=== PATIENT | male | born 1980 | race Caucasian/White ===

== ENCOUNTER 2023-01-05 21:18 | Emergency (ER) | payer MEDICAID ==
[~2023-01-05] VITALS: Ht 185.4 cm; Wt 84.1 kg
[2023-01-05 21:28] VITALS: BP 123/93; PULSE 89; RESP 18; TEMP 98; O2SAT 98
[2023-01-05] MEDS ORDERED: bacitracin 15gm ointment TP ONE (22:45)
[2023-01-05] MEDS ORDERED: LIDOcaine 1% W/epiNEPHrine 1:100,000 20ml vial IJ ONE (22:50)
--- NOTE | 2023-01-05 23:07 | NUR ---
wound irr with 150ml nacl pa informed
== END 2023-01-05 23:26 | disposition home or self-care (01) ==
LOC: ER 21:19
DX: S01.81XA Laceration without foreign body of other part of head, initial encounter (principal); W19.XXXA Unspecified fall, initial encounter; Y93.89 Activity, other specified; Y92.89 Other specified places as the place of occurrence of the external cause; Y99.8 Other external cause status
CPT/HCPCS: 12013; 99282

== ENCOUNTER → 2024-08-18 | Emergency (ER) | payer MEDICAID ==
[~2024-08-18] VITALS: Ht 188 cm; Wt 62.2 kg
[2024-08-18 12:10] VITALS: BP 127/88; PULSE 106; RESP 15; O2SAT 99
[2024-08-18 15:04] VITALS: TEMP 98.8
== END | disposition home or self-care (01) ==
LOC: ER 12:09
DX: S93.491A Sprain of other ligament of right ankle, initial encounter (principal); X50.1XXA Overexertion from prolonged static or awkward postures, initial encounter; Y93.01 Activity, walking, marching and hiking; Y92.89 Other specified places as the place of occurrence of the external cause; Y99.8 Other external cause status
CPT/HCPCS: 29515; 99283; L1930

== ENCOUNTER 2025-05-12 12:46 | Outpatient (CLI) | payer MEDICAID ==
[~2025-05-12 12:46] MED LIST: iohexol 300mg/ml 100ml inj. ONE
--- NOTE | 2025-05-12 14:17 | RADIOLOGY REPORT ---
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 Axial, coronal and sagittal multiplanar reformats were performed. Radiation Dose Information: CT Dose: CTDI volume is 13 mGy. Dose-length product is 486 mGy*cm The dose indicators for CT are the volume Computed Tomography (CT) Dose Index (CTDIvol) and the Dose Length Product (DLP), and are measured in units of mGy and mGy-cm, respectively. These indicators are not patient dose, but values generated from the CT scanner acquisition factors. The report includes radiation exposure data for exposures received during this examination. FINDINGS: Lower neck: Normal thyroid. Lungs: No focal consolidation, pleural effusion or pneumothorax. Heart/Vascular Structures: Normal heart size. No pericardial effusion. Lymph Nodes: No adenopathy Pleura: No pleural effusion or significant pneumothorax. Musculoskeletal: No acute osseous abnormality. Soft tissues: Normal. Upper abdomen: Limited portions of the upper abdomen are unremarkable. IMPRESSION: 1. No acute intrathoracic abnormality. 2. No evidence of malignancy in the chest Radiation optimization: All CT scans at this facility use at least one of these dose optimization techniques: automated exposure control mA and/or kV adjustment per patient size (includes targeted exams where dose is matched to clinical indication) or iterative reconstruction.
== END 2025-05-12 23:59 | disposition home or self-care (01) ==
LOC: RAD 12:46
PROVIDERS: ATTEND Student in an Organized Health Care Education/Training Program
DX: C77.0 Secondary and unspecified malignant neoplasm of lymph nodes of head, face and neck (principal); J30.2 Other seasonal allergic rhinitis
CPT/HCPCS: 71260; Q9967